=== PATIENT | male | born 1975 ===

== ENCOUNTER 2016-06-21 12:54 | Emergency (ER) | payer MEDICAID, OTHER ==
[2016-06-21 13:13] VITALS: BP 130/84; PULSE 81; RESP 18; TEMP 98.5; O2SAT 97
--- NOTE | 2016-06-21 14:55 | RAD ---
Left knee History: Pain and swelling. Comparison: None. Technique: Three views of the left knee were obtained. Findings: No evidence of acute fracture. Ossific/calcific density in the soft tissues of the medial femoral condyle, likely from old injury. Small suprapatellar joint effusion. Impression: No acute fracture. Possible old injury on the medial aspect. Please note that tendinous and ligamentous injury is better evaluated with MRI.
--- NOTE | 2016-06-21 15:23 | C.PDOC ---
Time Seen by Provider: 06/21/16 13:12 Chief Complaint (Nursing): Lower Extremity Problem/Injury Past Medical History Vital Signs: Last Vital Signs Temp 98.5 F 06/21/16 13:09 Pulse 81 06/21/16 13:09 Resp 18 06/21/16 13:09 BP 130/84 06/21/16 13:09 Pulse Ox 97 06/21/16 13:09 Family History: States: Unknown Family Hx - Social History Hx Alcohol Use: No Hx Substance Use: No - Immunization History Hx Tetanus Toxoid Vaccination: No Hx Influenza Vaccination: No Hx Pneumococcal Vaccination: No ED Course And Treatment O2 Sat by Pulse Oximetry: 97 Disposition - Disposition Referrals: [facility] [Outside] [facility] [Outside] Disposition: HOME/ ROUTINE Disposition Time: 15:21 Condition: STABLE Additional Instructions: Follow up with PMD within 1-2 days. Return to ED if feel worse. Prescriptions: Ibuprofen [Motrin Tab] 600 mg PO Q8 #30 tab traMADol [Ultram] 50 mg PO Q6 #30 tab Instructions: Swollen Knee Joint (ED) - Clinical Impression Clinical Impression: Effusion of knee
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
== END 2016-06-21 15:25 | disposition home or self-care (01) ==
LOC: C.ER 12:54
DX: M25.462 Effusion, left knee (principal)
CPT/HCPCS: 73562; 97116; 97161; 99285; G8978; G8979; G8980

== ENCOUNTER 2016-08-04 14:52 | Emergency (ER) | payer SELFPAY ==
[2016-08-04 14:55] VITALS: BP 170/90; PULSE 108; RESP 20; TEMP 98.1; O2SAT 98
--- NOTE | 2016-08-04 16:20 | C.PDOC ---
History Of Present Illness 40 yr old male presents to the ER with complaints of sore throat and fever for the past 3 days. Patient also reports difficulty swallowing and positive sick contact. Patient denies chest pain, SOB, cough, vomiting, abdominal pain or headache. Time Seen by Provider: 08/04/16 15:15 Chief Complaint (Nursing): ENT Problem History Per: Patient History/Exam Limitations: no limitations Onset/Duration Of Symptoms: Days (3) Past Medical History Reviewed: Historical Data, Nursing Documentation, Vital Signs Vital Signs: Last Vital Signs Temp 98.1 F 08/04/16 14:55 Pulse 108 H 08/04/16 14:55 Resp 20 08/04/16 14:55 BP 170/90 H 08/04/16 14:55 Pulse Ox 98 08/04/16 16:23 Family History: States: No Known Family Hx - Social History Hx Alcohol Use: No Hx Substance Use: No - Immunization History Hx Tetanus Toxoid Vaccination: No Hx Influenza Vaccination: No Hx Pneumococcal Vaccination: No Review Of Systems Except As Marked, All Systems Reviewed And Found Negative. Constitutional: Positive for: Fever (Subjective ) ENT: Positive for: Throat Pain (Sore throat ), Other ((+) Difficulty swallowing ) Cardiovascular: Negative for: Chest Pain Respiratory: Negative for: Cough, Shortness of Breath Gastrointestinal: Negative for: Vomiting, Abdominal Pain Neurological: Negative for: Headache Physical Exam - Physical Exam Appears: Well, No Acute Distress Skin: Warm, No Rash Head: Atraumatic, Normacephalic Throat: Erythema, Exudate (Small exudate on the left tonsil) Lymphatic: Adenopathy (tender anterior lymphadenopathy) Chest: Symmetrical, No Tenderness Cardiovascular: Rhythm Regular, No Murmur Respiratory: Normal Breath Sounds, No Rales, No Rhonchi, No Stridor, No Wheezing Extremity: Normal ROM, No Swelling Neurological/Psych: Oriented x3, Normal Speech, Normal Motor ED Course And Treatment O2 Sat by Pulse Oximetry: 98 Disposition - Disposition Referrals: [facility] [Outside] [facility] [Outside] Disposition: HOME/ ROUTINE Disposition Time: 15:00 Condition: GOOD Additional Instructions: Thank you for letting us take care of you today. Your provider was Dr. Deras. You were treated for pharyngitis. The emergency medical care you received today was directed at your acute symptoms. If you were prescribed any medication, please fill it and take as directed. It may take several days for your symptoms to resolve. Return to the Emergency Department if your symptoms worsen, do not improve, or if you have any other problems. Please contact your doctor or call one of the physicians/clinics you have been referred to that are listed on the Patient Visit Information form that is included in your discharge packet. Bring any paperwork you were given at discharge with you along with any medications you are taking to your follow up visit. Our treatment cannot replace ongoing medical care by a primary care provider (PCP) outside of the emergency department. Thank you for allowing the [facility] team to be part of your care today. Follow up with the clinic in 3-4 days for re-evaluation. Prescriptions: Amoxicillin 875 mg PO BID #14 tablet Ibuprofen [Motrin] 600 mg PO Q6 PRN #20 tab PRN Reason: Pain, Moderate (4-7) Instructions: Pharyngitis (ED) - Clinical Impression Clinical Impression: Pharyngitis - Scribe Statement The provider has reviewed the documentation as recorded by the Dakota Benedict Provider Attestation: All medical record entries made by the Dakota were at my direction and personally dictated by me. I have reviewed the chart and agree that the record accurately reflects my personal performance of the history, physical exam, medical decision making, and the department course for this patient. I have also personally directed, reviewed, and agree with the discharge instructions and disposition.
== END 2016-08-04 15:30 | disposition home or self-care (01) ==
LOC: C.ER 14:52
DX: J02.9 Acute pharyngitis, unspecified (principal)

== ENCOUNTER 2016-08-27 05:21 | Emergency (ER) | payer SELFPAY ==
[2016-08-27 05:42] VITALS: O2SAT 99
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
[2016-08-27 06:21] VITALS: BP 127/76; PULSE 83; RESP 20; TEMP 98.1
== END 2016-08-27 06:21 | disposition home or self-care (01) ==
LOC: C.ER 05:21
DX: S01.81XA Laceration without foreign body of other part of head, initial encounter (principal); W01.0XXA Fall on same level from slipping, tripping and stumbling without subsequent striking against object, initial encounter; Y93.89 Activity, other specified; Y92.414 Local residential or business street as the place of occurrence of the external cause

== ENCOUNTER 2016-10-15 18:45 | Emergency (ER) | payer SELFPAY ==
[2016-10-15 19:25] VITALS: BP 137/82; PULSE 103; RESP 16; TEMP 98; O2SAT 96
--- NOTE | 2016-10-15 19:53 | C.PDOC ---
History Of Present Illness 40 year old male presents to ED with complaints of left ankle pain after twisting injury yesterday when stepping out of truck. He reports noticing swelling which increased today. He is able to bear weight but has pain with walking. He did not take any medication. Denies any knee pain, calf pain, numbness, weakness or other injury. Time Seen by Provider: 10/15/16 19:49 Chief Complaint (Nursing): Lower Extremity Problem/Injury History Per: Patient History/Exam Limitations: no limitations Onset/Duration Of Symptoms: Hrs Current Symptoms Are (Timing): Still Present Additional History Per: Patient - Ankle/Foot Description Of Injury: Twisted Past Medical History Reviewed: Historical Data, Nursing Documentation, Vital Signs Vital Signs: Last Vital Signs Temp 98.0 F 10/15/16 19:23 Pulse 103 H 10/15/16 19:23 Resp 16 10/15/16 19:23 BP 137/82 10/15/16 19:23 Pulse Ox 96 10/15/16 20:19 - Medical History PMH: No Chronic Diseases Surgical History: No Surg Hx Family History: States: Unknown Family Hx - Social History Hx Alcohol Use: No Hx Substance Use: No - Immunization History Hx Tetanus Toxoid Vaccination: No Hx Influenza Vaccination: No Hx Pneumococcal Vaccination: No Review Of Systems Musculoskeletal: Positive for: Other (+left ankle pain, no knee or calf pain ) Neurological: Negative for: Weakness, Numbness Physical Exam - Physical Exam Appears: Non-toxic, No Acute Distress Skin: Normal Color, Warm, Dry Head: Atraumatic, Normacephalic Eye(s): bilateral: Normal Inspection Oral Mucosa: Moist Neck: Supple Extremity: Tenderness (mild to left lateral ankle, below malleolus ), No Calf Tenderness, Capillary Refill (less than 2 seconds ), Swelling (mild to left lateral ankle ), No Other (ecchymosis ) Pulses: Left Dorsalis Pedis: Normal Neurological/Psych: Normal Speech, Normal Cognition Gait: Steady ED Course And Treatment O2 Sat by Pulse Oximetry: 96 (on RA) Pulse Ox Interpretation: Normal Medical Decision Making Medical Decision Making: Impression: 40 y/o male with left ankle pain Plan: * left ankle XR * Motrin PO * reassess and disposition Progress: left ankle XR ordered and reviewed showing no acute fracture or dislocation. Patient received Motrin PO. Patient has his own yobani bandage. Offer crutches but patient refused. Disposition Counseled Patient/Family Regarding: Diagnosis, Need For Followup, Rx Given - Disposition Referrals: Alireza Edward III, MD [Staff Provider] - Disposition: HOME/ ROUTINE Disposition Time: 20:18 Condition: STABLE Additional Instructions: Your xray was normal, no fracture. Please apply ice to area 15 minutes three times a day. Take Motrin as needed for pain every 6 hours, with food to not upset stomach. Follow up with orthopedic if pain persists over one week. 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 - Scribe Statement The provider has reviewed the documentation as recorded by the Scribe (Tanja East) All medical record entries made by the Scribe were at my direction and personally dictated by me. I have reviewed the chart and agree that the record accurately reflects my personal performance of the history, physical exam, medical decision making, and the department course for this patient. I have also personally directed, reviewed, and agree with the discharge instructions and disposition.
--- NOTE | 2016-10-16 10:45 | RAD ---
PROCEDURE: Left ankle dated 10/15/2016 HISTORY: pain s.p injury 2 days ago COMPARISON: None FINDINGS: BONES: No evidence of acute displaced fracture nor dislocation. Talar dome appears intact. JOINTS: Ankle mortise maintained. Small elliptical shaped corticated density within the soft tissues subjacent to the inferior tip of the medial malleolus may represent some old posttraumatic mineralization or old unfused avulsion fracture SOFT TISSUES: Mild moderate soft tissue swelling overlying the lateral malleolus. Lateral soft tissue swelling OTHER FINDINGS: None. IMPRESSION: No evidence of acute displaced fracture nor dislocation. Small elliptical shaped corticated density within the soft tissues subjacent to the inferior tip of the medial malleolus may represent some old posttraumatic mineralization or old unfused avulsion fracture
== END 2016-10-15 20:25 | disposition home or self-care (01) ==
LOC: C.ER 18:45
DX: S93.402A Sprain of unspecified ligament of left ankle, initial encounter (principal); X50.1XXA Overexertion from prolonged static or awkward postures, initial encounter; Y93.89 Activity, other specified; Y92.812 Truck as the place of occurrence of the external cause

== ENCOUNTER 2017-01-17 07:01 | Emergency (ER) | payer MEDICAID ==
[2017-01-17 07:20] VITALS: RESP 20
[2017-01-17] MEDS ORDERED: Albuterol-Ipratrop 3 mg / 0.5 (3 ml) UD IH STA (07:35)
[2017-01-17] MEDS ORDERED: Albuterol-Ipratrop 3 mg / 0.5 (3 ml) UD ONE (07:48)
[2017-01-17] MEDS ORDERED: Lidocaine 1% Inj (20ml) ONE (07:50)
--- NOTE | 2017-01-17 07:52 | C.PDOC ---
History Of Present Illness 41 y/o male presents to ED with c/o cough, wheezing for 2 weeks. Denies fever, chills, nausea, vomiting, or other associated symptoms. Time Seen by Provider: 01/17/17 07:23 Chief Complaint (Nursing): Shortness Of Breath History Per: Patient History/Exam Limitations: no limitations Onset/Duration Of Symptoms: Days Current Symptoms Are (Timing): Still Present Initiating Event: Upper Respiratory Illness Associated Symptoms: denies: Fever, Chills, Chest Pain, Dizziness Recent travel outside of the [place]: No Past Medical History Reviewed: Historical Data, Nursing Documentation, Vital Signs Vital Signs: Last Vital Signs Temp 99 F 01/17/17 08:40 Pulse 87 01/17/17 08:40 Resp 20 01/17/17 08:40 BP 133/76 01/17/17 08:40 Pulse Ox 98 01/17/17 08:40 - Medical History PMH: No Chronic Diseases Family History: States: Unknown Family Hx - Social History Hx Alcohol Use: Yes Hx Substance Use: No - Immunization History Hx Tetanus Toxoid Vaccination: No Hx Influenza Vaccination: No Hx Pneumococcal Vaccination: No Review Of Systems Except As Marked, All Systems Reviewed And Found Negative. Constitutional: Negative for: Fever Respiratory: Positive for: Cough, Wheezing Gastrointestinal: Negative for: Vomiting Skin: Negative for: Rash Neurological: Negative for: Dizziness Physical Exam - Physical Exam Appears: Non-toxic, No Acute Distress Skin: Normal Color, Warm, Dry Head: Atraumatic, Normacephalic Eye(s): bilateral: Normal Inspection, EOMI Oral Mucosa: Moist Throat: Normal, No Erythema, No Exudate Neck: Normal ROM, Supple Chest: Symmetrical Cardiovascular: Rhythm Regular Respiratory: Normal Breath Sounds, No Rales, No Rhonchi, No Wheezing Gastrointestinal/Abdominal: Soft, No Tenderness, No Guarding, No Rebound Back: Normal Inspection Extremity: Normal ROM, Capillary Refill (< 2 sec.) Neurological/Psych: Oriented x3, Normal Speech, Normal Cognition Gait: Steady ED Course And Treatment O2 Sat by Pulse Oximetry: 96 (RA) Pulse Ox Interpretation: Normal - Radiology CXR: Interpreted by Me CXR Interpretation: Yes: No Acute Disease Progress Note: CxR, duoneb treatment. On re-evaluation lungs clear, in no distress Reassessment Condition: Improved Disposition Counseled Patient/Family Regarding: Studies Performed, Diagnosis, Need For Followup, Rx Given - Disposition Referrals: [facility] [Outside] 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 - Scribe Statement The provider has reviewed the documentation as recorded by the Scribe SM All medical record entries made by the Scribe were at my direction and personally dictated by me. I have reviewed the chart and agree that the record accurately reflects my personal performance of the history, physical exam, medical decision making, and the department course for this patient. I have also personally directed, reviewed, and agree with the discharge instructions and disposition.
--- NOTE | 2017-01-17 07:59 | RAD ---
HISTORY: Cough COMPARISON: None available. TECHNIQUE: Chest PA and lateral FINDINGS: Examination limited by habitus. LUNGS: No focal consolidation. Please note that chest x-ray has limited sensitivity for the detection of pulmonary masses. PLEURA: No significant pleural effusion identified. No definite pneumothorax . CARDIOVASCULAR: Heart size appears within limits OSSEOUS STRUCTURES: No acute osseous abnormality identified. VISUALIZED UPPER ABDOMEN: Unremarkable. OTHER FINDINGS: None. IMPRESSION: No focal consolidation, significant pleural effusion, or definite pneumothorax identified.
[2017-01-17 08:41] VITALS: BP 133/76; PULSE 87; TEMP 99
[2017-01-17 10:06] VITALS: O2SAT 96
== END 2017-01-17 08:41 | disposition home or self-care (01) ==
LOC: C.ER 07:01
DX: J98.8 Other specified respiratory disorders (principal); R05 Cough; F17.210 Nicotine dependence, cigarettes, uncomplicated

== ENCOUNTER 2017-03-15 17:58 | Emergency (ER) | payer MEDICAID, SELFPAY ==
[2017-03-15] MEDS ORDERED: Sodium Chloride 0.9% 1,000 ML IV ONE (19:33)
--- NOTE | 2017-03-15 19:33 | C.PDOC ---
History Of Present Illness 41 yr old male presents to the ER with complaints of abdominal pain for the past 2-3 days. Patient also reports of black stool. Patient reports he was taking Motrin and Percocet for a foot surgery but stopped taking them 1 week ago. Denies fever, chills, chest pain, SOB, nausea, vomiting, diarrhea, weakness or numbness. Time Seen by Provider: 03/15/17 19:35 Chief Complaint (Nursing): Abdominal Pain History Per: Patient History/Exam Limitations: no limitations Onset/Duration Of Symptoms: Days (2-3) Current Symptoms Are (Timing): Still Present Past Medical History Reviewed: Historical Data, Nursing Documentation, Vital Signs Vital Signs: Last Vital Signs Temp 98.3 F 03/15/17 23:51 Pulse 82 03/15/17 23:51 Resp 17 03/15/17 23:51 BP 131/80 03/15/17 23:51 Pulse Ox 97 03/16/17 00:46 Family History: States: No Known Family Hx - Social History Hx Alcohol Use: No Hx Substance Use: No - Immunization History Hx Tetanus Toxoid Vaccination: No Hx Influenza Vaccination: No Hx Pneumococcal Vaccination: No Review Of Systems Except As Marked, All Systems Reviewed And Found Negative. Constitutional: Negative for: Fever, Chills Cardiovascular: Negative for: Chest Pain Respiratory: Negative for: Shortness of Breath Gastrointestinal: Positive for: Abdominal Pain. Negative for: Nausea, Vomiting , Diarrhea Neurological: Negative for: Weakness, Numbness Physical Exam - Physical Exam Appears: Non-toxic, No Acute Distress Skin: Warm, Dry, No Rash Head: Atraumatic, Normacephalic Eye(s): bilateral: Normal Inspection, PERRL, EOMI Oral Mucosa: Moist Cardiovascular: Rhythm Regular, No Murmur Respiratory: Normal Breath Sounds, No Rales, No Rhonchi, No Stridor, No Wheezing Gastrointestinal/Abdominal: Soft, Tenderness (RLQ with cough), No Mass, Guarding (guarding RLQ on palpation) Extremity: Normal ROM Neurological/Psych: Oriented x3, Normal Speech, Normal Motor ED Course And Treatment - Laboratory Results Result Diagrams: 03/15/17 19:55 03/15/17 19:55 O2 Sat by Pulse Oximetry: 97 (RA) Pulse Ox Interpretation: Normal - CT Scan/US CT - Abd & Pelvis Other Rad Studies (CT/US): Read By Radiologist, Radiology Report Reviewed Medical Decision Making Medical Decision Making: PLAN: * CT - Abd & Pelvis * CBC * CMP * Morphine IVP * Protonix IVP * Zofran IVP * Sodium Chloride IV Disposition - Disposition Referrals: [facility] [Outside] Disposition: HOME/ ROUTINE Disposition Time: 00:43 Condition: FAIR Prescriptions: Acetaminophen/Hydrocodone Bi [Vicodin 300 mg-5 mg] 1 tab PO QID PRN #12 tab PRN Reason: Pain, Mild (1-3) Levofloxacin [Levaquin] 500 mg PO DAILY #10 tablet Forms: [employer] (Faroese) - Clinical Impression Clinical Impression: UTI (urinary tract infection) - Scribe Statement The provider has reviewed the documentation as recorded by the Dakota Benedict Provider Attestation: All medical record entries made by the Marilynibe were at my direction and personally dictated by me. I have reviewed the chart and agree that the record accurately reflects my personal performance of the history, physical exam, medical decision making, and the department course for this patient. I have also personally directed, reviewed, and agree with the discharge instructions and disposition.
--- NOTE | 2017-03-15 19:34 | C.PDOC ---
Chief Complaint (Nursing): Abdominal Pain Past Medical History Vital Signs: Last Vital Signs Temp 98.6 F 03/15/17 18:02 Pulse 136 H 03/15/17 18:02 Resp 22 03/15/17 18:02 BP 137/94 H 03/15/17 18:02 Pulse Ox 97 03/15/17 18:02 Family History: States: Unknown Family Hx - Social History Hx Alcohol Use: No Hx Substance Use: No - Immunization History Hx Tetanus Toxoid Vaccination: No Hx Influenza Vaccination: No Hx Pneumococcal Vaccination: No ED Course And Treatment O2 Sat by Pulse Oximetry: 97 Disposition - Disposition
[2017-03-15] MEDS ORDERED: Morphine 4 MG/ML VIAL ONE (19:47)
[2017-03-15] MEDS ORDERED: Sodium Chloride 0.9% 1,000 ML ONE (19:47)
[2017-03-15 20:02] LABS: BASO % 1.1 % (0.0-2.0); EOS % 0.4 % (0.0-4.0); HEMOGLOBIN 14.6 g/dL (12.0-18.0); LYMPH # 0.7 K/uL (1.0-4.3); LYMPH % 24.7 % (20.0-40.0); MEAN CELL VOLUME 93.3 fL (80.0-94.0); MEAN CORPUSCULAR HEMOGLOBIN 31.8 pg (27.0-31.0); MEAN CORPUSCULAR HGB CONC 34.1 g/dL (33.0-37.0); MEAN PLATELET VOLUME 9.1 fL (7.2-11.7); MONO # 0.3 K/uL (0.0-0.8); MONO % 9.2 % (0.0-10.0); NEUT # 1.8 K/uL (1.8-7.0); NEUT % 64.6 % (50.0-75.0); NRBC % 0.1 % (0.0-2.0); RBC 4.58 Mil/uL (4.40-5.90); RED CELL DISTRIBUTION WIDTH 13.2 % (11.5-14.5); WHITE BLOOD COUNT 2.8 K/uL (4.8-10.8)
[2017-03-15 20:16] LABS: ALB/GLOB RATIO 1.3 (1.0-2.1); ALBUMIN 3.7 g/dL (3.5-5.0); ALT/SGPT 82 U/L (21-72); AST/SGOT 64 U/L (17-59); BLOOD UREA NITROGEN 15 mg/dL (9-20); GFR AFRICAN-AMERICAN > 60; GFR NON-AFRICAN AMERICAN > 60; LIPASE 26 U/L (23-300)
[2017-03-15] MEDS ORDERED: Iohexol 300 100 ML IJ ONE (21:05)
--- NOTE | 2017-03-15 22:24 | CT ---
EXAM: CT Abdomen and Pelvis With Intravenous Contrast EXAM DATE/TIME: 03/15/2017 7:33 PM CLINICAL HISTORY: 41 years old, male; Pain; Abdominal pain; Generalized; Additional info: Abd pain TECHNIQUE: Axial computed tomography images of the abdomen and pelvis with intravenous contrast. All CT scans at this facility use one or more dose reduction techniques, viz.: automated exposure control; ma/kV adjustment per patient size (including targeted exams where dose is matched to indication; i.e. head); or iterative reconstruction technique. Coronal and sagittal reformatted images were created and reviewed. CONTRAST: 100 mL of OMNIPAQUE 300 administered intravenously. COMPARISON: No relevant prior studies available. FINDINGS: There is bibasilar atelectasis. The liver and spleen are prominent. Probable tiny 3 mm hypoattenuating right hepatic lesion too small to characterize. The pancreas is normal. No gallstones. No hydronephrosis or perinephric stranding. The terminal ileum is distended with fluid as are a few loops of distal ileum. Fluid is present in the cecal tip. Few scattered colonic diverticuli are noted. The appendix is identified axial images 82 through 100 and coronal images 58 through 68. It measures 5 mm which is within normal limits. There is fluid in the proximal portion presumably secondary to the fluid in the cecal tip. No periappendiceal inflammation. IMPRESSION: No acute findings.
[2017-03-15] MEDS ORDERED: HYDROmorphone 1 mg/ml ISec IVP STA (23:39)
[2017-03-15 23:52] VITALS: BP 131/80; PULSE 82; RESP 17; TEMP 98.3
[2017-03-16 00:45] VITALS: O2SAT 97
== END 2017-03-16 01:06 | disposition home or self-care (01) ==
LOC: C.ER 17:58
DX: N39.0 Urinary tract infection, site not specified (principal)
CPT/HCPCS: 74177; 80053; 83690; 85025; 96361; 96374; 96375; 99284; C9113; J1170; J2270; J2405; J7040; Q9967

== ENCOUNTER 2017-10-24 12:20 | Emergency (ER) | payer MEDICAID ==
[2017-10-24 12:33] VITALS: BP 138/94; PULSE 105; RESP 18; TEMP 98.8; O2SAT 93
[2017-10-24] MEDS ORDERED: Albuterol-Ipratrop 3 mg / 0.5 (3 ml) UD INH STA (12:49)
[2017-10-24] MEDS ORDERED: Albuterol-Ipratrop 3 mg / 0.5 (3 ml) UD ONE (12:57)
--- NOTE | 2017-10-24 13:15 | RAD ---
HISTORY: cough/wheezing, PNA September COMPARISON: Chest x-ray performed 01/17/17 TECHNIQUE: Chest PA and lateral FINDINGS: Examination limited by habitus. LUNGS: No focal consolidation. Please note that chest x-ray has limited sensitivity for the detection of pulmonary masses. PLEURA: No significant pleural effusion identified. No definite pneumothorax . CARDIOVASCULAR: The cardiomediastinal silhouette appears within normal limits of size. OSSEOUS STRUCTURES: No acute osseous abnormality identified. VISUALIZED UPPER ABDOMEN: Unremarkable. OTHER FINDINGS: None. IMPRESSION: No focal consolidation, significant pleural effusion, or definite pneumothorax identified.
--- NOTE | 2017-10-24 13:20 | C.PDOC ---
History Of Present Illness 41 y/o male presents to the ED with complaints of dry cough and wheezing for 3 days. Patient reports history of reactive airway disease and PNA in 09/2017. Also admits to smoking 0.5 PPD of cigarettes. Patient otherwise denies any fever , chills, sputum production, hemoptysis, vomiting, or other associated symptoms. Time Seen by Provider: 10/24/17 12:38 Chief Complaint (Nursing): Shortness Of Breath History Per: Patient History/Exam Limitations: no limitations Onset/Duration Of Symptoms: Days Current Symptoms Are (Timing): Still Present Past Medical History Reviewed: Historical Data, Nursing Documentation, Vital Signs Vital Signs: Last Vital Signs Temp 98.8 F 10/24/17 12:30 Pulse 105 H 10/24/17 12:30 Resp 18 10/24/17 12:30 BP 138/94 H 10/24/17 12:30 Pulse Ox 93 L 10/24/17 13:20 - Medical History PMH: Pneumonia Other Surgeries: Right ankle surgery Family History: States: Unknown Family Hx - Social History Hx Tobacco Use: Yes Hx Alcohol Use: No Hx Substance Use: No - Immunization History Hx Tetanus Toxoid Vaccination: No Hx Influenza Vaccination: No Hx Pneumococcal Vaccination: No Review Of Systems Except As Marked, All Systems Reviewed And Found Negative. Constitutional: Negative for: Fever, Chills, Sweats ENT: Negative for: Nose Congestion, Throat Pain Cardiovascular: Negative for: Chest Pain, Palpitations, Light Headedness Respiratory: Positive for: Cough, Wheezing. Negative for: Hemoptysis, Sputum Gastrointestinal: Negative for: Vomiting, Abdominal Pain Physical Exam - Physical Exam Appears: Non-toxic, No Acute Distress, Other (+ smells like cigarettes) Skin: Normal Color, Warm, Dry Head: Atraumatic, Normacephalic Eye(s): bilateral: Normal Inspection, PERRL, EOMI Oral Mucosa: Moist Neck: Normal ROM, Supple Chest: Symmetrical Cardiovascular: Rhythm Regular, No Murmur Respiratory: No Accessory Muscle Use, No Rales, No Rhonchi, No Wheezing, Other ( Clear to auscultation) Gastrointestinal/Abdominal: Soft, No Tenderness Extremity: Bilateral: Atraumatic, Normal Color And Temperature, Normal ROM Pulses: Left Radial: Normal, Right Radial: Normal Neurological/Psych: Oriented x3, Normal Speech ED Course And Treatment O2 Sat by Pulse Oximetry: 93 (RA) - Radiology CXR: Interpreted by Me CXR Interpretation: Yes: No Acute Disease (+ cuff thickening, no pna/pnx) Medical Decision Making Medical Decision Making: Initial Plan: --CXR --EKG --Duoneb x2 --40 mg prednisone PO --Peak flow pre/post neb Impression: early reactive airway dz clear lungs on initial and 2nd eval. outpatient f/u with Pulm Disposition Doctor Will See Patient In The: Office Counseled Patient/Family Regarding: Studies Performed, Diagnosis - Disposition Referrals: [facility] [Outside] [facility] [Outside] [facility] [Outside] [facility] [Outside] Disposition: HOME/ ROUTINE Disposition Time: 13:20 Condition: GOOD Additional Instructions: curb smoking as much as possible Nebulzier treatments with TWO ampules of Duoneb liquids every 3-4 hours (4-5x/ day) Medrol Dose Pack- steroids- as prescribed Follow-up with out outpatient [facility] (free) as indicated Referral to Dr. Rai- [facility]- as needed. Prescriptions: Albuterol HFA [Ventolin HFA 90 mcg/actuation (8 g)] 2 puff IH Q4H PRN #1 puff PRN Reason: asthma Albuterol/Ipratropium [Duoneb 3 MG/3 Ml-0.5 MG/3 Ml 3 Ml] 6 ml IH Q4H PRN #100 neb PRN Reason: asthma Methylprednisolone [Medrol Dose Pack (21 tabs)] 4 mg PO DAILY #21 mg Nebulizer [Compact Compressor Nebulizer] 1 dev XX PRN PRN #1 dev PRN Reason: reactive airway Spacer, Inhalation [Aerochamber] 1 dev IH DAILY #1 dev Instructions: Chronic Obstructive Pulmonary Disease (COPD), Including Emphysema , Cough in Adults, Quitting Smoking for Older Adults Forms: [employer] (Romanian) - Clinical Impression Clinical Impression: Cough - Scribe Statement The provider has reviewed the documentation as recorded by the Dakota Miguel Provider Attestation: All medical record entries made by the Marilynibe were at my direction and personally dictated by me. I have reviewed the chart and agree that the record accurately reflects my personal performance of the history, physical exam, medical decision making, and the department course for this patient. I have also personally directed, reviewed, and agree with the discharge instructions and disposition.
--- NOTE | 2017-10-26 02:14 | CARD ---
APPROVED REPORT Date of service: 10/24/2017 EKG Measurement Heart [id number] <Conclusion> Normal sinus rhythm with sinus arrhythmia Normal ECG
== END 2017-10-24 13:32 | disposition home or self-care (01) ==
LOC: C.ER 12:20
DX: R05 Cough (principal); F17.210 Nicotine dependence, cigarettes, uncomplicated

== ENCOUNTER 2018-04-03 12:41 | Emergency (ER) | payer MEDICARE, MEDICAID ==
[2018-04-03 12:51] VITALS: RESP 18
--- NOTE | 2018-04-03 13:09 | C.PDOC ---
HPI: Influenza Time Seen by Provider: 04/03/18 12:55 Chief Complaint: Flu-like Symptoms History Per: Patient Have you had recent travel within the past 21 days to any of the following countries: [place], [place], [place] or [place]?: No Onset/Duration Of Symptoms: Days (2) Symptoms include: fever, headache, bodyaches, sore throat, cough, nasal congestion, vomiting Hx Influenza Vaccination: No Past Medical History Reviewed: Historical Data, Nursing Documentation, Vital Signs Vital Signs: Last Vital Signs Temp 99.2 F 04/03/18 12:48 Pulse 90 04/03/18 12:48 Resp 18 04/03/18 12:48 BP 118/79 04/03/18 12:48 Pulse Ox 94 L 04/03/18 12:48 - Medical History PMH: No Chronic Diseases Family History: States: Unknown Family Hx - Social History Hx Tobacco Use: Yes Hx Alcohol Use: No Hx Substance Use: No - Immunization History Hx Tetanus Toxoid Vaccination: No Hx Influenza Vaccination: No Hx Pneumococcal Vaccination: No Review Of Systems Except As Marked, All Systems Reviewed And Found Negative. Constitutional: Positive for: Fever, Malaise ENT: Positive for: Nose Congestion. Negative for: Ear Pain Cardiovascular: Negative for: Chest Pain Respiratory: Positive for: Cough. Negative for: Shortness of Breath, Hemoptysis Gastrointestinal: Positive for: Vomiting. Negative for: Abdominal Pain, Diarrhea Genitourinary: Negative for: Dysuria Musculoskeletal: Negative for: Neck Pain Skin: Negative for: Rash Neurological: Positive for: Headache. Negative for: Weakness, Numbness, Seizures, Altered Mental Status Physical Exam - Physical Exam Appears: Non-toxic, No Acute Distress Skin: Normal Color, Warm, Dry, No Rash Head: Atraumatic, Normacephalic Eye(s): bilateral: PERRL, EOMI Oral Mucosa: Moist, No Drooling, No Trismus Throat: Erythema, No Exudate, No Drooling, No Mass Neck: Normal ROM, Supple Cardiovascular: Rhythm Regular Respiratory: Normal Breath Sounds, No Accessory Muscle Use Gastrointestinal/Abdominal: Soft, No Tenderness, No Distention Extremity: Normal ROM Neurological/Psych: Oriented x3, Normal Motor, Normal Sensation - ECG O2 Sat by Pulse Oximetry: 94 Disposition Counseled Patient/Family Regarding: Diagnosis, Need For Followup, Rx Given - Disposition Referrals: Travis Blair MD [Staff Provider] - Disposition: HOME/ ROUTINE Disposition Time: 13:23 Condition: STABLE Additional Instructions: Follow up with your doctor. Return to the ER if you develop shortness of breath, worsening of symptoms or if you have any other concerns. Prescriptions: Benzonatate 200 mg PO TID PRN #15 capsule PRN Reason: Cough Naproxen [Naprosyn] 1 tab PO BID PRN #25 tab PRN Reason: Pain Oseltamivir Cap [Tamiflu] 75 mg PO BID #10 cap Oxymetazoline 0.05% [Oxymetazoline HCl 30 Ml] 2 sprays NS BID #1 bottle Instructions: Flu, Adult (DC) - Clinical Impression Clinical Impression: Influenza-like illness
[2018-04-03 13:45] VITALS: BP 126/75; PULSE 85; TEMP 98.5; O2SAT 95
== END 2018-04-03 13:49 | disposition home or self-care (01) ==
LOC: C.ER 12:41
DX: J11.1 Influenza due to unidentified influenza virus with other respiratory manifestations (principal); Z87.891 Personal history of nicotine dependence

== ENCOUNTER 2018-05-17 14:55 | Emergency (ER) | payer MEDICARE, MEDICAID ==
[2018-05-17 15:09] VITALS: RESP 20
--- NOTE | 2018-05-17 16:28 | C.PDOC ---
History Of Present Illness Patient presents to the ED c/o pain, swelling and redness to right ankle x2 days. Patient is also c/o nausea. Patient states he underwent surgery to R ankle last year to repair a fracture. Around 6 weeks ago, patient went in to get the hardware taken out, has had no intervention since then. Today patient was wearing boots and felt something rubbing against his foot, prompting visit. Pt went to see his doctor two days ago, was advised to go to the ED for evaluation. Patient denies fever, chills, vomiting, dizziness, syncope. Chief Complaint (Nursing): Abnormal Skin Integrity History Per: Patient History/Exam Limitations: no limitations Current Symptoms Are (Timing): Still Present Location Of Injury: Right: Ankle Quality Of Symptoms: Painful, Swollen Additional History Per: Patient Past Medical History Reviewed: Historical Data, Nursing Documentation, Vital Signs Vital Signs: Last Vital Signs Temp 98.6 F 05/17/18 15:06 Pulse 96 H 05/17/18 15:06 Resp 20 05/17/18 15:06 BP 141/90 05/17/18 15:06 Pulse Ox 96 05/17/18 15:06 - Medical History PMH: Pneumonia Surgical History: No Surg Hx Family History: States: Unknown Family Hx - Social History Hx Tobacco Use: Yes Hx Alcohol Use: No Hx Substance Use: No - Immunization History Hx Tetanus Toxoid Vaccination: No Hx Influenza Vaccination: Yes (2019) Hx Pneumococcal Vaccination: No Review Of Systems Constitutional: Negative for: Fever, Chills Gastrointestinal: Negative for: Vomiting Skin: Positive for: Other (R ankle pain, swelling, redness ) Neurological: Negative for: Weakness, Numbness, Dizziness Physical Exam - Physical Exam Appears: Non-toxic, No Acute Distress Skin: Normal Color, Warm, Dry Head: Atraumatic, Normacephalic Eye(s): bilateral: Normal Inspection Oral Mucosa: Moist Neck: Supple Chest: Symmetrical, No Deformity, No Tenderness Cardiovascular: Rhythm Regular, No Murmur Respiratory: Normal Breath Sounds, No Rales, No Rhonchi, No Wheezing Extremity: Normal ROM (full ROM right ankle ), Tenderness (r ankle ), Capillary Refill (less than 2 seconds ), Other (well-healed surgical scar to the right lateral malleolus, 1.5cm linear soft scar with erythema and streaking from medial to lateral malleolus. increased warmth. no drainage. no streaking up the leg. ) Pulses: Left Dorsalis Pedis: Normal, Right Dorsalis Pedis: Normal Neurological/Psych: Oriented x3, Normal Speech, Normal Cognition, Normal Motor, Normal Sensation ED Course And Treatment - Laboratory Results Result Diagrams: 05/17/18 17:00 05/17/18 17:00 O2 Sat by Pulse Oximetry: 96 Medical Decision Making Medical Decision Making: Progress: Bloodwork and R ankle XR ordered. Skin marker used to elvie off the affected area. Disposition Counseled Patient/Family Regarding: Studies Performed, Diagnosis, Need For Followup - Disposition Referrals: Jena Castillo MD [Staff Provider] - Disposition Time: 18:24 Condition: STABLE Additional Instructions: MAYNOR LANGSTON, thank you for letting us take care of you today. Your provider was Allison Nunez MD and you were treated for RT LEG PAIN. The emergency medical care you received today was directed at your acute symptoms. If you were prescribed any medication, please fill it and take as directed. It may take several days for your symptoms to resolve. Return to the Emergency Department if your symptoms worsen, do not improve, or if you have any other problems. Please contact Dr. Castillo for an appointment in 2 days. Bring any paperwork you were given at discharge with you along with any medications you are taking to your follow up visit. Our treatment cannot replace ongoing medical care by a primary care provider outside of the emergency department. Thank you for allowing the [facility] team to be part of your care today. If you had an X-Ray or CT scan: A Radiologist will review the ED reading if any change in treatment is needed we will contact you. If you had a blood, urine, or wound culture: It will take several days for the results, if any change in treatment is needed we will contact you. If you had an STI test: It will take 48 hours for the results. Please call after 1 week if you have not heard back. Prescriptions: Clindamycin [Cleocin] 300 mg PO Q6H #28 cap Instructions: Cellulitis (Skin Infection), Adult (DC) Forms: [employer] (Spanish), General Discharge Instructions - Clinical Impression Clinical Impression: Cellulitis - Scribe Statement The provider has reviewed the documentation as recorded by the Scribe (SP) Provider Attestation: All medical record entries made by the Scribe were at my direction and personally dictated by me. I have reviewed the chart and agree that the record accurately reflects my personal performance of the history, physical exam, medical decision making, and the department course for this patient. I have also personally directed, reviewed, and agree with the discharge instructions and disposition.
[2018-05-17 17:04] LABS: EOS # 0.1 K/uL (0.0-0.7); MEAN CORPUSCULAR HEMOGLOBIN 33.3 pg (27.0-31.0); MONO # 0.5 K/uL (0.0-0.8)
[2018-05-17 17:10] LABS: BASO # 0.1 K/uL (0.0-0.2); BASO % 0.9 % (0.0-2.0); EOS % 1.5 % (0.0-4.0); HEMOGLOBIN 15.4 g/dL (12.0-18.0); LYMPH # 1.8 K/uL (1.0-4.3); LYMPH % 27.8 % (20.0-40.0); MEAN CORPUSCULAR HGB CONC 34.6 g/dL (33.0-37.0); MEAN PLATELET VOLUME 8.7 fL (7.2-11.7); MONO % 7.4 % (0.0-10.0); NEUT % 62.4 % (50.0-75.0); NRBC % 0.1 % (0.0-2.0); RBC 4.61 Mil/uL (4.40-5.90); RED CELL DISTRIBUTION WIDTH 13.3 % (11.5-14.5)
[2018-05-17 17:16] LABS: MEAN CELL VOLUME 96.3 fL (80.0-94.0); WHITE BLOOD COUNT 6.4 K/uL (4.8-10.8)
[2018-05-17 17:19] LABS: ALB/GLOB RATIO 1.5 (1.0-2.1); ALBUMIN 4.5 g/dL (3.5-5.0); ALT/SGPT 29 U/L (21-72); AST/SGOT 33 U/L (17-59); BLOOD UREA NITROGEN 17 mg/dL (9-20); CALCIUM 9.6 mg/dl (8.6-10.4); GFR NON-AFRICAN AMERICAN > 60
[2018-05-17] MEDS ORDERED: ceFAZolin IV 1 gm in Dextrose 1 GM/50 ML BAG IVPB STA (17:31)
--- NOTE | 2018-05-17 17:31 | RAD ---
Date of service: 05/17/2018 PROCEDURE: Right Ankle Radiographs. HISTORY: swelling/pain COMPARISON: None available. FINDINGS: BONES: Status post open reduction and internal fixation of displaced fracture in the distal fibula. Metal plate and screws remain in place. There are screw tracks in the distal tibia and fibula from prior surgery. Bone alignment and mineralization are normal. There is no acute displaced fracture or bone destruction. JOINTS: Normal. No osteoarthritis. Ankle mortise maintained. Talar dome intact SOFT TISSUES: Normal. OTHER FINDINGS: None. IMPRESSION: Status post open reduction and internal fixation of displaced fracture in the distal fibula. No acute fracture or dislocation. No hardware complications.
[2018-05-17] MEDS ORDERED: Clindamycin 600mg/50ml D5W 600 MG/50 ML VIAL IVPB SCH (17:45)
[2018-05-17] MEDS ORDERED: Clindamycin 600mg/50ml NS 600 MG/50 ML BAG IVPB ONE (17:50)
[2018-05-17] MEDS ORDERED: Clindamycin 600mg/50ml D5W 600 MG/50 ML VIAL IVPB STA (18:08)
[2018-05-17 18:37] VITALS: BP 111/70; PULSE 88; TEMP 98.7; O2SAT 99
== END 2018-05-17 18:45 | disposition home or self-care (01) ==
LOC: C.ER 14:55
DX: L03.115 Cellulitis of right lower limb (principal)

== ENCOUNTER 2018-07-29 13:11 | Emergency (ER) | payer MEDICARE, MEDICAID ==
--- NOTE | 2018-07-29 15:48 | C.PDOC ---
History Of Present Illness 42 year old male presents to ED with complaint of pain to the right clavicle area. He states that he was trying to put something up today and felt a snap in the right clavicle. Patient has a history of prior fracture to the same area. Patient notes that is painful to move his arm. He denies weakness or numbness. Time Seen by Provider: 07/29/18 13:39 Chief Complaint (Nursing): Upper Extremity Problem/Injury History Per: Patient History/Exam Limitations: no limitations Onset/Duration Of Symptoms: Hrs Current Symptoms Are (Timing): Still Present Quality: "Pain" Exacerbating Factor(s): Movement Past Medical History Reviewed: Historical Data, Nursing Documentation, Vital Signs Vital Signs: Last Vital Signs Temp 97.7 F 07/29/18 13:14 Pulse 103 H 07/29/18 13:14 Resp 20 07/29/18 13:14 BP 136/95 H 07/29/18 13:14 Pulse Ox 98 07/29/18 13:14 Primary Care Provider: Non [facility] Provider, - Medical History PMH: Pneumonia Surgical History: No Surg Hx Family History: States: Unknown Family Hx - Social History Hx Tobacco Use: Yes Hx Alcohol Use: No Hx Substance Use: No - Immunization History Hx Tetanus Toxoid Vaccination: No Hx Influenza Vaccination: Yes (2019) Hx Pneumococcal Vaccination: No Review Of Systems Constitutional: Negative for: Fever, Chills, Weakness Musculoskeletal: Positive for: Other (right clavicle pain ) Neurological: Negative for: Weakness, Numbness Physical Exam - Physical Exam Appears: Non-toxic, No Acute Distress Skin: Normal Color, Warm, Dry Head: Atraumatic, Normacephalic Neck: Normal ROM, Supple Chest: Symmetrical, No Deformity Cardiovascular: Rhythm Regular, No Murmur Extremity: Tenderness (mild tenderness to the distal clavicle and shoulder ), Capillary Refill (<2 seconds), No Deformity, No Swelling, Other (decreased ability to abduct the right arm due to pain ) Pulses: Left Radial: Normal, Right Radial: Normal Neurological/Psych: Oriented x3, Normal Speech, Normal Cognition, Normal Motor, Normal Sensation ED Course And Treatment O2 Sat by Pulse Oximetry: 98 (in RA) Pulse Ox Interpretation: Normal - Other Rad right shoulder X-Ray: Interpreted by Me Interpretation: No acute pathology seen right calvicle X-Ray: Interpreted by Me Interpretation: No acute pathology seen Progress Note: Right shoulder and right clavicle x-ray. arm sling provided. patient is stable to be d/c home with Orthopedist follow up. Disposition - Disposition Referrals: Alireza Edward III, MD [Staff Provider] - Disposition: HOME/ ROUTINE Disposition Time: 15:47 Condition: STABLE Additional Instructions: Follow up with Orthopedist within 2-3 days. Return to ED if feel worse. Prescriptions: Lidocaine 5% [Lidoderm] 1 patch TP DAILY #30 patch Ibuprofen [Motrin Tab] 600 mg PO Q8 #30 tab Instructions: Shoulder Sprain (DC) Forms: [employer] (Persian), School Excuse - Clinical Impression Clinical Impression: Shoulder sprain - PA / MEDICAL RECORDS SPECIALIST / Resident Statement MD/DO has reviewed & agrees with the documentation as recorded. (Yumiko Carter) - Scribe Statement The provider has reviewed the documentation as recorded by the Scribe (Yumiko Carter) All medical record entries made by the Scribe were at my direction and personally dictated by me. I have reviewed the chart and agree that the record accurately reflects my personal performance of the history, physical exam, medical decision making, and the department course for this patient. I have also personally directed, reviewed, and agree with the discharge instructions and disposition.
--- NOTE | 2018-07-29 15:49 | C.PDOC ---
Time Seen by Provider: 07/29/18 13:39 Chief Complaint (Nursing): Upper Extremity Problem/Injury Past Medical History Vital Signs: Last Vital Signs Temp 97.7 F 07/29/18 13:14 Pulse 103 H 07/29/18 13:14 Resp 20 07/29/18 13:14 BP 136/95 H 07/29/18 13:14 Pulse Ox 98 07/29/18 13:14 Primary Care Provider: Non [facility] Provider, - Medical History PMH: Pneumonia Family History: States: Unknown Family Hx - Social History Hx Tobacco Use: Yes Hx Alcohol Use: No Hx Substance Use: No - Immunization History Hx Tetanus Toxoid Vaccination: No Hx Influenza Vaccination: Yes (2019) Hx Pneumococcal Vaccination: No ED Course And Treatment O2 Sat by Pulse Oximetry: 98 Disposition - Disposition Referrals: Alireza Edward III, MD [Staff Provider] - Disposition: HOME/ ROUTINE Disposition Time: 15:47 Condition: STABLE Additional Instructions: Follow up with Orthopedist within 2-3 days. Return to ED if feel worse. Prescriptions: Lidocaine 5% [Lidoderm] 1 patch TP DAILY #30 patch Ibuprofen [Motrin Tab] 600 mg PO Q8 #30 tab Instructions: Shoulder Sprain (DC) - Clinical Impression Clinical Impression: Shoulder sprain
[2018-07-29 15:57] VITALS: BP 121/79; PULSE 86; RESP 17; TEMP 98.5
[2018-07-29 15:59] VITALS: O2SAT 98
--- NOTE | 2018-07-29 19:06 | RAD ---
Date of service: 07/29/2018 PROCEDURE: Radiographs of the Right Shoulder HISTORY: injury COMPARISON: No prior. TECHNIQUE: 3 views obtained. FINDINGS: BONES: Normal. No fracture. JOINTS: Normal. Glenohumeral and acromioclavicular joints preserved. No osteoarthritis. SOFT TISSUES: Normal. OTHER FINDINGS: None. IMPRESSION: No evidence of acute fracture or dislocation.
--- NOTE | 2018-07-29 19:07 | RAD ---
Date of service: 07/29/2018 PROCEDURE: Radiographs of the right clavicle. HISTORY: injury COMPARISON: None. TECHNIQUE: 2 views obtained. FINDINGS: RIGHT CLAVICLE: No fracture or focal lesion. JOINTS: Right acromioclavicular and glenohumeral joints are grossly unremarkable. SOFT TISSUES: Grossly unremarkable. OTHER FINDINGS: None. IMPRESSION: No evidence of acute fracture or dislocation.
== END 2018-07-29 15:55 | disposition home or self-care (01) ==
LOC: C.ER 13:11
DX: S43.401A Unspecified sprain of right shoulder joint, initial encounter (principal); X58.XXXA Exposure to other specified factors, initial encounter